=== PATIENT | male | born 1985 | race Caucasian/White ===

== ENCOUNTER 2024-06-23 18:28 | Emergency (ER) | payer BC ==
[~2024-06-23] VITALS: Ht 175.3 cm; Wt 86.2 kg
[2024-06-23 18:33] VITALS: BP 210/100; PULSE 79; RESP 18; TEMP 98.4; O2SAT 98
[2024-06-23] MEDS ORDERED: BOOSTRIX IM ONE (18:51)
[2024-06-23] MEDS: BOOSTRIX IM ONE (18:55)
[2024-06-23] MEDS ORDERED: LIDOCAINE 1% VIAL ONE (18:55)
[2024-06-23] MEDS ORDERED: ROCEPHIN ONE (18:55)
[2024-06-23] MEDS: ROCEPHIN IM ONE (18:59)
[2024-06-23 19:46] VITALS: BP 200/130; PULSE 75; RESP 18; O2SAT 96
[2024-06-23] MEDS ORDERED: CATAPRES ONE (19:50)
[2024-06-23] MEDS ORDERED: NORCO 5MG PO ONE (19:51)
[2024-06-23] MEDS ORDERED: NAPR-824 PO (19:53)
[2024-06-23] MEDS ORDERED: CEPH500C PO (19:53)
[2024-06-23] MEDS: CATAPRES PO STA (19:55)
[2024-06-23] MEDS: NORCO 5MG PO STA (19:55)
== END 2024-06-23 20:00 | disposition home or self-care (01) ==
LOC: ER 18:28
DX: S61.306A Unspecified open wound of right little finger with damage to nail, initial encounter (principal); S60.416A Abrasion of right little finger, initial encounter; I10 Essential (primary) hypertension; W23.1XXA Caught, crushed, jammed, or pinched between stationary objects, initial encounter; Y93.89 Activity, other specified; Y92.89 Other specified places as the place of occurrence of the external cause; Y99.8 Other external cause status
CPT/HCPCS: 99284; 90471; 96372; 90715; 73140; J2003; J0696